=== PATIENT | female | born 1960 | race Caucasian/White ===

== ENCOUNTER → 2024-04-26 | Outpatient (CLI) | payer OTHER ==
--- NOTE | 2024-04-27 11:29 | HMCSR ---
APPROVED REPORT Bilateral Lower Extremity Venous Study for DVT., Venous Competence.Study performed with patient in up right position or in reverse Trendelenburg. Vein Imaging CFV (R): Normal flow, augmentation and compression. No evidence of DVT, Diameter 12.3 mm SFJ (R): Normal flow, augmentation and compression. No evidence of DVT. FEM (R): Normal flow, augmentation and compression. No evidence of DV, 356 ms of DVR. POP (R): Normal flow, augmentation and compression. No evidence of DVT, 283 ms of DVR. DFV (R): Normal flow, augmentation and compression. No evidence of DVT. PTV (R): Normal flow, augmentation and compression. No evidence of DVT. Peroneals (R): Normal flow, augmentation and compression. No evidence of DVT. GAS (R): Normal flow, augmentation and compression. No evidence of DVT. CFV (L): Normal flow, augmen tation and compression. No evidence of DVT, Diameter 9.4 mm SFJ (L): Normal flow, augmentation and compression. No evidence of DVT. FEM (L): Normal flow, augmentation and compression. No evidence of DVT. POP (L): Normal flow, augmentation and compression. No evidence of DVT. DFV (L): Normal flow, augmentation and compression. No evidence of DVT. PTV (L): Normal flow, augmentation and compression. No evidence of DVT. Peroneals (L): Normal flow, augmentation and compression. No evidence of DVT. GAS (L): Normal flow, augmentation and compression. No evidence of DVT. Technologist Impression The deep veins of the bilateral lower extremities appear patent and compressible without evidence of thrombus. Deep venous reflux demonstrated noted. There is evidence of significant superficial venous insufficiency in the bilateral greater saphenous veins. RGSV Junction 5.7 mm 1144 ms Mid thigh 3.3 mm 0 ms Knee 2.9 mm 0 ms (Does not appear to connect proximally) Mid- calf 2.7 mm 0 ms RSSV Prox 2.5 mm 0 ms Mid 2.3 mm 0 ms LGSV Junction 5.7 mm 1011 ms Mid thigh 3.9 mm 0 ms Knee 4.0 mm 556 ms Mid-calf 2.4 mm 306 ms LSSV Prox 2.8 mm 339 ms Mid 1.7 mm 0 ms Conclusion Severe superficial venous reflux noted of bilateral greater saphenous veins greater than 500 millisec onds Deep venous reflux noted Consider formal venography with intravascular ultrasound if clinically indicated Conclusion Severe superficial venous reflux noted of bilateral greater saphenous veins greater than 500 millisec onds Deep venous reflux noted Consider formal venography with intravascular ultrasound if clinically indicated
== END | disposition home or self-care (01) ==
LOC: SHCH 09:00
PROVIDERS: ATTEND Internal Medicine Cardiovascular Disease
DX: I87.2 Venous insufficiency (chronic) (peripheral) (principal)
CPT/HCPCS: 93970